=== PATIENT | male | born 1970 | race Caucasian/White ===

== ENCOUNTER 2022-10-28 02:13 | Emergency (ER) | payer OTHER ==
[~2022-10-28] VITALS: Ht 177.8 cm; Wt 86.2 kg
[2022-10-28 03:12] VITALS: BP 132/76
[2022-10-28] MEDS ORDERED: PREDNISONE 20 MG TABLET PO ONE (03:30)
[2022-10-28] MEDS ORDERED: OXYMETAZOLINE HCL SPRAY 15 ML BOTTLE ONE (03:51)
[2022-10-28] MEDS ORDERED: PRED20TA3 PO (03:55)
[2022-10-28] MEDS ORDERED: FLUT9.9S NS (03:59)
[2022-10-28] MEDS ORDERED: OXYMETAZOLINE HCL SPRAY 15 ML BOTTLE EN SCH (04:00)
== END 2022-10-28 04:27 | disposition home or self-care (01) ==
LOC: EDH 02:13
DX: J30.9 Allergic rhinitis, unspecified (principal); J32.9 Chronic sinusitis, unspecified; J33.9 Nasal polyp, unspecified; Z20.822 Contact with and (suspected) exposure to COVID-19
CPT/HCPCS: 99283; 87635; 87804 ×2; C9803

== ENCOUNTER 2023-10-10 02:13 | Emergency (ER) | payer OTHER ==
[~2023-10-10] VITALS: Ht 177.8 cm; Wt 97.1 kg
[~2023-10-10 02:13] MED LIST: FLUT9.9S NS; PRED20TA3 PO
[2023-10-10 02:15] VITALS: BP 146/91; PULSE 64; RESP 18
[2023-10-10] MEDS ORDERED: KETOROLAC 60 MG VIAL (30MG/ML) IM ONE (03:00)
[2023-10-10] MEDS ORDERED: IBUP-1493 PO (03:07)
== END 2023-10-10 03:58 | disposition home or self-care (01) ==
LOC: EDH 02:13
DX: M25.561 Pain in right knee (principal); M79.89 Other specified soft tissue disorders; Z79.899 Other long term (current) drug therapy; Z90.49 Acquired absence of other specified parts of digestive tract; Z98.890 Other specified postprocedural states
CPT/HCPCS: 99283; 29505; 73564; 96372; J1885